=== PATIENT | female | born 1945 ===

== ENCOUNTER 2017-09-27 12:10 | Outpatient (CLI) | payer OTHER | END 2017-09-27 12:14 | disposition home or self-care (01) | LOC: MAMO-SONO 12:10 | DX: Z12.31 Encounter for screening mammogram for malignant neoplasm of breast (principal); Z87.898 Personal history of other specified conditions; N64.89 Other specified disorders of breast ==

== ENCOUNTER 2017-09-28 13:18 | Outpatient (CLI) | payer OTHER | END 2017-09-28 13:20 | disposition home or self-care (01) | LOC: SONOGRAMA 13:18 | DX: R10.32 Left lower quadrant pain (principal) ==

== ENCOUNTER 2018-11-29 11:24 | Outpatient (CLI) | payer OTHER | END 2018-11-29 14:11 | disposition home or self-care (01) | LOC: MAMO-SONO 11:24 | DX: Z12.31 Encounter for screening mammogram for malignant neoplasm of breast (principal); Z87.898 Personal history of other specified conditions; N60.22 Fibroadenosis of left breast ==

== ENCOUNTER 2021-06-10 08:18 | Outpatient (CLI) | payer OTHER | END 2021-06-10 08:28 | disposition home or self-care (01) | LOC: MAMO-SONO 08:18 | PROVIDERS: ATTEND Obstetrics & Gynecology Gynecology | DX: R92.1 Mammographic calcification found on diagnostic imaging of breast (principal); N60.11 Diffuse cystic mastopathy of right breast; N60.12 Diffuse cystic mastopathy of left breast; Z12.31 Encounter for screening mammogram for malignant neoplasm of breast ==